=== PATIENT | female | born 1995 | race Caucasian/White ===

== ENCOUNTER → 2018-06-21 | Outpatient (REF) | payer OTHER ==
[2018-06-21 17:21] LABS: BASO # 0.1 10^3/uL (0.0-0.2); BASO % 0.6 % (0.0-1.0); EOS # 0.1 10^3/uL (0.0-0.50); EOS % 1.2 % (0.0-3.0); HEMATOCRIT 41.3 % (36.0-47.0); LYMPH # 3.3 10^3/uL (1.5-6.5); LYMPH % 34.1 % (24.0-44.0); MEAN CORPUSCULAR HEMOGLOBIN 30.4 pg (27.0-33.0); MEAN CORPUSCULAR HGB CONC 33.9 g/dl (32.0-36.5); MEAN CORPUSCULAR VOLUME 89.8 fl (80.0-96.0); MONO # 0.6 10^3/uL (0.0-0.8); MONO % 6.3 % (0.0-5.0); NEUTROPHILS # 5.5 10^3/uL (1.8-7.7); NEUTROPHILS % 57.5 % (36.0-66.0); PLATELET COUNT, AUTOMATED 334 10^3/uL (150-450); WHITE BLOOD COUNT 9.5 10^3/uL (4.0-10.0)
[2018-06-21 17:31] LABS: ALBUMIN 3.6 GM/DL (3.2-5.2); ALT/SGPT 17 U/L (12-78); BILIRUBIN,TOTAL 0.2 MG/DL (0.2-1.0); BLOOD UREA NITROGEN 9 MG/DL (7-18); CALCIUM LEVEL 8.9 MG/DL (8.5-10.1); CARBON DIOXIDE LEVEL 26 MEQ/L (21-32); CHLORIDE LEVEL 104 MEQ/L (98-107); CREATININE FOR GFR 0.76 MG/DL (0.55-1.30); GLOMERULAR FILTRATION RATE > 60.0 (>60); GLUCOSE, FASTING 84 MG/DL (70-100); POTASSIUM SERUM 4.9 MEQ/L (3.5-5.1); RHEUMATOID FACTOR QUANT < 10.0 IU/ML (<15.0); SODIUM LEVEL 138 MEQ/L (136-145); TOTAL 25(OH) VITAMIN D 13.5 NG/ML (30.0-100.0); TOTAL PROTEIN 7.6 GM/DL (6.4-8.2)
[2018-06-21 18:12] LABS: ERYTHROCYTE SEDIMENTATION RATE 20 mm/hr (0-20)
[2018-06-23 14:14] LABS: ANTINUCLEAR ANTIBODIES DIRECT Negative (Negative)
== END ==
LOC: M LABNEURO 12:35
PROVIDERS: ATTEND Psychiatry & Neurology Neurology
DX: R51 Headache (principal)

== ENCOUNTER → 2024-07-25 | Outpatient (CLI) | payer OTHER ==
[2024-07-25 18:00] LABS: HEMOGLOBIN A1c 5.8 % (4.0-6.0)
== END ==
LOC: M PLALAB 12:05
PROVIDERS: ATTEND Obstetrics & Gynecology
DX: E28.2 Polycystic ovarian syndrome (principal)

== ENCOUNTER 2025-03-02 04:13 | Emergency (ER) | payer OTHER ==
[~2025-03-02 04:13] MED LIST: MORPHINE 4 MG/ML 1 ML VIAL As Ordered ONE; ONDANSETRON 4MG 2ML VIAL As Ordered ONE
[2025-03-02 04:27] LABS: BASO # 0.1 10^3/uL (0.0-0.2); BASO % 0.5 % (0.0-1.0); EOS # 0.2 10^3/uL (0.0-0.5); EOS % 1.9 % (0.0-3.0); LYMPH # 3.6 10^3/uL (1.5-5.0); LYMPH % 32.5 % (24.0-44.0); MONO # 0.6 10^3/uL (0.0-0.8); MONO % 5.5 % (2.0-8.0); NEUTROPHILS # 6.6 10^3/uL (1.5-8.5); NEUTROPHILS % 59.3 % (36.0-66.0); PLATELET COUNT, AUTOMATED 260 10^3/uL (150-450)
[2025-03-02 04:30] LABS: ALT/SGPT 39 U/L (7.0-40); AST/SGOT 43 U/L (<34); CALCIUM LEVEL 8.9 MG/DL (8.5-10.1); CARBON DIOXIDE LEVEL 24 MMOL/L (20-31); CHLORIDE LEVEL 108 MMOL/L (98-107); CREATININE FOR GFR 0.70 MG/DL (0.55-1.30); GLOMERULAR FILTRATION RATE > 90.0 (>60); POTASSIUM SERUM 3.6 MMOL/L (3.5-5.1); SODIUM LEVEL 143 MMOL/L (136-145)
[2025-03-02] MEDS ORDERED: ISOVUE-370 76% 100 ML VIAL As Ordered ONE (05:03)
[2025-03-02] MEDS: NS (Normal Saline) 0.9% 1,000 ML IV ONE (06:45)
[2025-03-02] MEDS ORDERED: [UNRECOGNIZED DRUG - OTHER] SUBQ (08:02)
[2025-03-02] MEDS ORDERED: VENL75CA47 PO (08:02)
[2025-03-02] MEDS ORDERED: BUSP5TA PO (08:02)
[2025-03-02] MEDS ORDERED: NIACINAMIDE SUBQ (08:02)
[2025-03-02] MEDS ORDERED: HOME MED LIST COMPLETE! XX SCH (08:05)
[2025-03-02] MEDS: NS (Normal Saline) 0.9% 1,000 ML IV SCH (08:14)
[2025-03-02 08:44] LABS: BASO # 0.1 10^3/uL (0.0-0.2); BASO % 0.5 % (0.0-1.0); EOS # 0.0 10^3/uL (0.0-0.5); EOS % 0.4 % (0.0-3.0); LYMPH # 2.4 10^3/uL (1.5-5.0); LYMPH % 25.3 % (24.0-44.0); MONO # 0.6 10^3/uL (0.0-0.8); MONO % 6.4 % (2.0-8.0); NEUTROPHILS # 6.3 10^3/uL (1.5-8.5); NEUTROPHILS % 67.2 % (36.0-66.0)
[2025-03-02 09:36] LABS: ALT/SGPT 272.0 U/L (7.0-40); AST/SGOT 266.0 U/L (<34)
[2025-03-02 14:03] LABS: BASO # 0.0 10^3/uL (0.0-0.2); BASO % 0.5 % (0.0-1.0); EOS # 0.1 10^3/uL (0.0-0.5); EOS % 1.4 % (0.0-3.0); LYMPH # 2.4 10^3/uL (1.5-5.0); LYMPH % 32.3 % (24.0-44.0); MONO # 0.5 10^3/uL (0.0-0.8); MONO % 7.3 % (2.0-8.0); NEUTROPHILS # 4.3 10^3/uL (1.5-8.5); NEUTROPHILS % 58.2 % (36.0-66.0)
[2025-03-02 14:27] LABS: ALT/SGPT 210.0 U/L (7.0-40); AST/SGOT 146.0 U/L (<34)
[2025-03-02] MEDS ORDERED: ONDA-282 PO (15:18)
[2025-03-02] MEDS ORDERED: HYDR-3713 PO (15:18)
[2025-03-02 15:25] VITALS: BP 127/81; TEMP 98; O2SAT 98
== END 2025-03-02 15:35 | disposition home or self-care (01) ==
LOC: M ED 04:13
DX: K85.10 Biliary acute pancreatitis without necrosis or infection (principal); R16.1 Splenomegaly, not elsewhere classified; F31.9 Bipolar disorder, unspecified; Z79.1 Long term (current) use of non-steroidal anti-inflammatories (NSAID); Z79.83 Long term (current) use of bisphosphonates; Z79.899 Other long term (current) drug therapy
CPT/HCPCS: 74177; 74181; 76705; 80048; 80076; 83605; 83690; 84484; 85025; 96360; 96361; 99285; Q9967

== ENCOUNTER 2025-03-18 01:00 | Observation (INO) | payer OTHER ==
[~2025-03-18] VITALS: Ht 170.2 cm; Wt 120.8 kg
[~2025-03-18 01:00] MED LIST changes: +BUSP5TA PO; +HYDR-3713 PO; -MORPHINE 4 MG/ML 1 ML VIAL As Ordered ONE; +NIACINAMIDE SUBQ; +ONDA-282 PO; -ONDANSETRON 4MG 2ML VIAL As Ordered ONE; +VENL75CA47 PO; +[UNRECOGNIZED DRUG - OTHER] SUBQ
[2025-03-18 02:58] LABS: BASO # 0.1 10^3/uL (0.0-0.2); BASO % 0.5 % (0.0-1.0); EOS # 0.1 10^3/uL (0.0-0.5); EOS % 0.7 % (0.0-3.0); LYMPH # 2.9 10^3/uL (1.5-5.0); LYMPH % 20.8 % (24.0-44.0); MONO # 1.1 10^3/uL (0.0-0.8); MONO % 8.2 % (2.0-8.0); NEUTROPHILS # 9.6 10^3/uL (1.5-8.5); NEUTROPHILS % 69.4 % (36.0-66.0); PLATELET COUNT, AUTOMATED 290 10^3/uL (150-450)
[2025-03-18] MEDS: MORPHINE 2 MG/ML 1 ML VIAL IV ONE (03:03)
[2025-03-18] MEDS: ONDANSETRON 4MG 2ML VIAL IV ONE (03:03)
[2025-03-18 03:18] LABS: ALT/SGPT 34 U/L (7.0-40); AST/SGOT 36 U/L (<34); CALCIUM LEVEL 9.1 MG/DL (8.5-10.1); CARBON DIOXIDE LEVEL 25 MMOL/L (20-31); CHLORIDE LEVEL 104 MMOL/L (98-107); CREATININE FOR GFR 0.76 MG/DL (0.55-1.30); GLOMERULAR FILTRATION RATE > 90.0 (>60); POTASSIUM SERUM 4.3 MMOL/L (3.5-5.1); SODIUM LEVEL 139 MMOL/L (136-145)
[2025-03-18 03:51] LABS: HCG, SERUM QUALITATIVE NEGATIVE (NEGATIVE)
[2025-03-18] MEDS: PIPERACILLIN/TAZOBACTAM SOD 4.5 GM in DEXTROSE 5% (D5W) ADV/MINI-BAG 50 ML IV ONE (05:49)
[2025-03-18] MEDS: NS (Normal Saline) 0.9% 1,000 ML IV ONE (05:49)
[2025-03-18] MEDS: KETOROLAC 30 MG/ML 1 ML VIAL IV ONE (06:36)
[2025-03-18] MEDS ORDERED: MORPHINE 4 MG/ML 1 ML VIAL IV PRN ×2 (06:50→07:40)
[2025-03-18] MEDS ORDERED: NS (Normal Saline) 0.9% 1,000 ML IV SCH (06:50)
[2025-03-18] MEDS ORDERED: ONDA-282 PO (07:22)
[2025-03-18] MEDS ORDERED: HYDR-4571 PO (07:22)
[2025-03-18] MEDS ORDERED: HOME MED LIST COMPLETE! XX SCH (07:25)
[2025-03-18] MEDS ORDERED: ONDANSETRON 4MG 2ML VIAL IV PRN (07:25)
[2025-03-18 07:50] LABS: C REACTIVE PROTEIN QUANTITATIV 0.52 MG/DL (<1.0)
[2025-03-18 08:03] LABS: ERYTHROCYTE SEDIMENTATION RATE 17 mm/hr (0-20)
[2025-03-18 08:16] VITALS: BP 107/57
[2025-03-18] MEDS: MIDODRINE 5 MG TAB PO ONE (08:16)
[2025-03-18] MEDS: LR 1,000 ML IV SCH (08:16)
[2025-03-18 09:05] VITALS: BP 110/55; TEMP 98.1; O2SAT 98
[2025-03-18] MEDS: D5W/0.45% SODIUM CHLORIDE 1,000 ML IV SCH (09:47)
[2025-03-18] MEDS: KETOROLAC 30 MG/ML 1 ML VIAL IV SCH (11:22)
[2025-03-18] MEDS: PIPERACILLIN/TAZOBACTAM SOD 4.5 GM in DEXTROSE 5% (D5W) ADV/MINI-BAG 50 ML IV SCH (11:22)
[2025-03-18 11:55] LABS: PLATELET COUNT, AUTOMATED 255 10^3/uL (150-450)
[2025-03-18 12:00] VITALS: BP 104/56; TEMP 98.1; O2SAT 98
[2025-03-18 12:33] LABS: ALT/SGPT 36 U/L (7.0-40); AST/SGOT 30 U/L (<34); CALCIUM LEVEL 8.5 MG/DL (8.5-10.1); CARBON DIOXIDE LEVEL 26 MMOL/L (20-31); CHLORIDE LEVEL 109 MMOL/L (98-107); CREATININE FOR GFR 0.72 MG/DL (0.55-1.30); GLOMERULAR FILTRATION RATE > 90.0 (>60); POTASSIUM SERUM 4.2 MMOL/L (3.5-5.1); SODIUM LEVEL 141 MMOL/L (136-145)
[2025-03-18] MEDS ORDERED: METR-265 PO (17:34)
[2025-03-18] MEDS ORDERED: CIPR-249 PO (17:34)
== END 2025-03-18 17:46 | disposition left against medical advice (07) ==
LOC: M ED 01:00 → INTOOBSV 07:21 → M ED INP 07:21 → M MSPAV 09:11
PROVIDERS: ADMIT General Practice; ATTEND General Practice
DX: K81.0 Acute cholecystitis (principal); Z53.21 Procedure and treatment not carried out due to patient leaving prior to being seen by health care provider; E66.01 Morbid (severe) obesity due to excess calories; E87.6 Hypokalemia; E28.2 Polycystic ovarian syndrome; F41.9 Anxiety disorder, unspecified; F32.A Depression, unspecified; F17.210 Nicotine dependence, cigarettes, uncomplicated; G43.909 Migraine, unspecified, not intractable, without status migrainosus
CPT/HCPCS: 36415; 76705; 80053; 82977; 83605; 83690; 84145; 84703; 85025; 85027; 85652; 86140; 96361; 96365; 96366; 96375; 96376; 99285; J1885; J2405; J2543

== ENCOUNTER 2025-04-20 13:03 | Day surgery (SDC) | payer OTHER ==
[~2025-04-20] VITALS: Ht 170.2 cm; Wt 117.5 kg
[~2025-04-20 13:03] MED LIST changes: +ACET-907 PO; +CIPR-249 PO; +HYDR-4571 PO; +MELA2.5C4 PO; +METR-265 PO; +MUCI1TAB16 PO; +MULT1TAB16 PO; +PHEN-890 PO; +[UNRECOGNIZED DRUG - OTHER] PO
[2025-04-20] MEDS ORDERED: dexAMETHasone 4 MG/ML 1 ML VIAL As Ordered ONE (14:11)
[2025-04-20] MEDS ORDERED: ONDANSETRON 4MG 2ML VIAL As Ordered ONE (14:11)
[2025-04-20] MEDS ORDERED: LIDOCAINE 2% 100 MG/5 ML SDV (FOR ANES.) As Ordered ONE (14:12)
[2025-04-20] MEDS ORDERED: ROCURONIUM BROMIDE 50MG/5ML VIAL As Ordered ONE (14:12)
[2025-04-20] MEDS ORDERED: MIDAZOLAM INJ 2 MG/2 ML VIAL As Ordered ONE (14:53)
[2025-04-20] MEDS ORDERED: ACETAMINOPHEN 1000MG/100ML IV BAG As Ordered ONE (15:11)
[2025-04-20] MEDS ORDERED: KETOROLAC 30 MG/ML 1 ML VIAL As Ordered ONE (15:23)
[2025-04-20] MEDS ORDERED: SUGAMMADEX SODIUM 500 MG/5 ML VIAL As Ordered ONE (15:52)
[2025-04-20] MEDS ORDERED: MORPHINE 4 MG/ML 1 ML VIAL IV PRN (16:10)
[2025-04-20] MEDS: HYDROMORPHONE HCL 0.5 MG/0.5 ML SYRINGE IV PRN (16:16)
[2025-04-20 17:48] VITALS: BP 134/73; TEMP 97.7; O2SAT 98
== END 2025-04-20 18:01 | disposition home or self-care (01) ==
LOC: M SDC 13:03
PROVIDERS: ATTEND Surgery
DX: K80.10 Calculus of gallbladder with chronic cholecystitis without obstruction (principal); I10 Essential (primary) hypertension; Z79.899 Other long term (current) drug therapy; Z88.0 Allergy status to penicillin; Z88.2 Allergy status to sulfonamides
CPT/HCPCS: 47562; 81025; 88304; J0131; J0665; J1100; J1171; J1885; J2250; J2405; J3010; S2900